=== PATIENT | female | born 1960 | race Caucasian/White ===

== ENCOUNTER 2016-08-23 06:14 | Emergency (ER) | payer OTHER ==
[~2016-08-23] VITALS: Ht 167.6 cm; Wt 89.7 kg
[~2016-08-23 06:14] MED LIST: INSDGI SC; LEVO150T PO; LISI-788 PO; METF500T PO; OMEP40CA PO; OXYC-57 PO
[2016-08-23 06:30] VITALS: TEMP 37.2; Ht 167.6 cm; Wt 89.7 kg
[2016-08-23 08:01] LABS: BASO % 0.2 %; BASO ABS # 0.03 K/uL (0-0.2); COMPLETE YES; EOS % 1.4 %; HEMATOCRIT 43.1 % (37-47); IG% 0.2 %; LYMPH % 33.6 %; LYMPH ABS # 4.19 K/uL (1.2-3.4); MEAN CELL VOLUME 94.3 fL (80-100); MEAN CORPUSCULAR HEMOGLOBIN 33.5 pg (25-34); MEAN CORPUSCULAR HGB CONC 35.5 g/dl (32-36); MEAN PLATELET VOLUME 11.7 fL (7.4-10.4); MONO % 5.5 %; NEUT % 59.1 %; PLATELET COUNT 208 K/uL (130-400); RED BLOOD COUNT 4.57 M/uL (4.2-5.4); WHITE BLOOD COUNT 12.47 K/uL (4.8-10.8)
[2016-08-23 08:18] LABS: BUN/CREATININE RATIO 16.8 (10-20); CALCIUM 9.1 mg/dl (8.5-10.1)
[2016-08-23] MEDS ORDERED: LEVO75TA PO (09:47)
[2016-08-23] MEDS ORDERED: LEVO150T PO (09:47)
[2016-08-23 10:12] VITALS: BP 122/70; PULSE 71; O2SAT 96
--- NOTE | 2016-08-24 16:41 | EMERGENCY ROOM VISIT NOTE ---
History First contact with patient: 07:19 Chief Complaint: OTHER COMPLAINT Stated Complaint: HEART PALP,HIGH HEART RATE History of Present Illness The patient is a 56 year old white female who presents to the Emergency Room with complaints of just not feeling right. She thinks she has had heart palpitations. Symptoms of been ongoing for a few days. She states she has been on Synthroid for 26 years. Recently her PCP changed her to generic levothyroxine. She also states her dose was increased from 175 g to 200 g. She believes her thyroid levels are off. She does not think the generic is as good as the name brand Synthroid. She states she is taking her medication daily. She was last seen at the [facility] approximately a month ago. She denies any fevers or chills. Occasional sweats. No nausea or vomiting. She denies any current dizziness. No chest pain or shortness of breath. No known ill contacts. She denies any upper respiratory symptoms. She is trying to quit smoking and has been started on Chantix. She is unsure if that medication is causing her symptoms. She does feel anxious. Review of Systems REVIEW OF SYSTEM: HEENT: No dizziness, visual problems, hearing loss, or tinnitus. There is no difficulty swallowing and no oral lesions are present. LYMPH: No adenopathy. PULMONARY: No cough, shortness of breath, sputum production or hemoptysis. CARDIOVASCULAR: No chest pain, palpitations, shortness of breath or peripheral edema. GASTROINTESTINAL: No diarrhea, constipation, nausea, vomiting, or abdominal pain. GENITOURINARY: No dysuria, frequency, urgency or nocturia. NEUROLOGIC: No weakness, muscle tenderness, epilepsy or history of neurological problems. Positive history of chronic headaches. MUSCULOSKELETAL: No history of joint tenderness/swelling. Positive history of arthritis and arthralgias. SKIN: No rashes or lesions. PSYCHIATRIC: Positive history of depression and anxiety. ENDOCRINE: No history of thyroid disorders, or abnormal hair growth. Past Medical/Surgical History Medical Problems: (1) Benign hypertension (2) Cervicalgia (3) Chronic low back pain (4) Diabetes (5) Diabetes (6) Diabetes mellitus, type II (7) History of - hypothyroidism (8) HTN (hypertension) (9) Lumbago (10) Lumbago (11) Lumbar degenerative disc disease (12) Migraines (13) Post-surgical hypothyroidism Surgical Problems: (1) H/O section (2) H/O inguinal hernia repair (3) H/O ovarian cystectomy (4) H/O partial thyroidectomy Left hip replacement Family History Significant for diabetes, heart disease, and hypertension. Father is . Social History Smoking Status: Current Every Day Smoker Smokeless Tobacco Use: No Alcohol Use: none Drug Use: none Marital Status: single Housing Status: lives with family Occupation Status: unemployed Current/Historical Medications Scheduled Cholecalciferol (Vitamin D), 1 TAB PO QPM Fenofibrate (Tricor), 145 MG PO QPM Insulin Glargine (Lantus), 30 UNITS SC QPM Levothyroxine Sodium (Synthroid), 175 MCG PO QAM Levothyroxine Sodium (Synthroid), 1 TAB PO DAILY Levothyroxine Sodium (Synthroid), 1 TAB PO DAILY Multivitamin (Multivitamin), 1 TAB PO DAILY Scheduled PRN Ibuprofen (Advil), 200-600 MG PO HS PRN for Pain Allergies Coded Allergies: Tramadol (Verified Allergy, Unknown, ITCHING/EAR RINGING, 08/23/16) Trazodone (Verified Allergy, Unknown, GI UPSET, RINGING OF THE EARS, FELT OVERDOSED, 08/23/16) Gabapentin (Verified Adverse Reaction, Unknown, GI upset, 08/23/16) Physical Exam Vital Signs Date Time Temp Pulse Resp B/P Pulse Ox O2 Delivery O2 Flow Rate FiO2 08/23/16 10:12 71 18 122/70 96 Room Air 08/23/16 09:00 78 18 137/86 98 Room Air 08/23/16 07:21 68 08/23/16 06:30 37.2 86 18 130/87 97 Room Air Pain Rating (0-10): 0 Physical Exam Gen.: Well-developed, well-nourished, middle-aged white female, in no acute distress. Laying on a bed. Alert and oriented. Skin:Warm and dry with good turgor. No rashes or lesions. No ecchymosis or erythema. The patient is not diaphoretic. No abrasions. Scar present on her left hip. HEENT: Normocephalic atraumatic. Eyes PERRLA, EOMI. No conjunctiva injection. Bilateral scleral injection. Ears TMs intact bilaterally with good light reflexes. No erythema or bulging. No hemotympanum. Canals are patent. Nares patent bilaterally without turbinate enlargement. No significant drainage. No epistaxis. Oropharynx without erythema or exudate. Uvula midline, oral mucosa moist. No lesions present. Heart: Heart RRR. No MGR. no palpitations. Peripheral pulses are 2+. Lungs: Lungs are clear to auscultation. No crackles rhonchi or wheezing. Good air movement. The patient is able to take a deep breath. Abdomen: Abdomen was inspected, auscultated, and palpated. Obese. Bowel sounds present x 4. Soft, nontender to palpation. No hepato-splenomegaly. No masses noted. No rebound. No CVA tenderness. Musculoskeletal: Gross motor function of the upper and lower extremities is intact and unremarkable. Neurologic: Gross sensation is intact across the upper and lower extremities by soft touch. Medical Decision & Procedures ER Provider Diagnostic Interpretation: EKG obtained today was reviewed with Dr. Solares. She has a normal sinus rhythm with a rate of 72. No significant change from May 2015. No acute ST or T- wave changes. Laboratory Results 08/23/16 07:20 Red Blood Count 4.57, Mean Corpuscular Volume 94.3, Mean Corpuscular Hemoglobin 33.5, Mean Corpuscular Hemoglobin Concent 35.5, Mean Platelet Volume 11.7, Neutrophils (%) (Auto) 59.1, Lymphocytes (%) (Auto) 33.6, Monocytes (%) (Auto) 5.5, Eosinophils (%) (Auto) 1.4, Basophils (%) (Auto) 0.2, Neutrophils # (Auto) 7.36, Lymphocytes # (Auto) 4.19, Monocytes # (Auto) 0.69, Eosinophils # (Auto) 0.18, Basophils # (Auto) 0.03 08/23/16 07:20 Test 08/23/16 07:20 White Blood Count 12.47 K/uL (4.8-10.8) Red Blood Count 4.57 M/uL (4.2-5.4) Hemoglobin 15.3 g/dL (12.0-16.0) Hematocrit 43.1 % (37-47) Mean Corpuscular Volume 94.3 fL (80-100) Mean Corpuscular Hemoglobin 33.5 pg (25-34) Mean Corpuscular Hemoglobin Concent 35.5 g/dl (32-36) Platelet Count 208 K/uL (130-400) Mean Platelet Volume 11.7 fL (7.4-10.4) Neutrophils (%) (Auto) 59.1 % Lymphocytes (%) (Auto) 33.6 % Monocytes (%) (Auto) 5.5 % Eosinophils (%) (Auto) 1.4 % Basophils (%) (Auto) 0.2 % Neutrophils # (Auto) 7.36 K/uL (1.4-6.5) Lymphocytes # (Auto) 4.19 K/uL (1.2-3.4) Monocytes # (Auto) 0.69 K/uL (0.11-0.59) Eosinophils # (Auto) 0.18 K/uL (0-0.5) Basophils # (Auto) 0.03 K/uL (0-0.2) RDW Standard Deviation 49.6 fL (36.4-46.3) RDW Coefficient of Variation 14.6 % (11.5-14.5) Immature Granulocyte % (Auto) 0.2 % Immature Granulocyte # (Auto) 0.02 K/uL (0.00-0.02) Anion Gap 9.0 mmol/L (3-11) Est Creatinine Clear Calc Drug Dose 72.5 ml/min Estimated GFR () 74.0 Estimated GFR (Non- 63.8 BUN/Creatinine Ratio 16.8 (10-20) Calcium Level 9.1 mg/dl (8.5-10.1) Thyroid Stimulating Hormone (TSH) 133.000 uIu/ml (0.300-4.500) Free Thyroxine 0.52 ng/dl (0.80-1.60) Free Triiodothyronine 1.58 pg/ml (2.30-4.20) CBC, PRP, TSH, free T4, and free T3 were obtained. TSH is significantly elevated at 133. It was over 100 at her last office visit 1 month ago. T4 and T3 are also off. ED Course Patient was educated regarding today's findings. Conservative care measures were discussed. IV was established. Labs were obtained. She was placed on monitor. She remained stable while in the ED. Her TSH, free T3, and free T4 significantly off. I did speak with the [facility] hospitalist. She recommended switching the patient back to Synthroid 225 g daily. She will stop the generic levothyroxine. Patient will follow-up with her PCP on September 10. An appointment has been made. Return to the ED for any other concerns. Impression Primary Impression: Hypothyroidism Departure Information Dispostion Home / Self-Care Condition GOOD Prescriptions Levothyroxine Sodium (SYNTHROID) 150 Mcg Tab 1 TAB PO DAILY for 30 Days, #30 TAB 0 Refills Prov: Higinio Ott,P.A. 08/23/16 Levothyroxine Sodium (SYNTHROID) 75 Mcg Tab 1 TAB PO DAILY for 30 Days, #30 TAB 0 Refills Prov: Higinio Ott,P.A. 08/23/16 Referrals Saul Pina M.D. (PCP) Forms WORK / SCHOOL INSTRUCTIONS, HOME CARE DOCUMENTATION FORM, IMPORTANT VISIT INFORMATION Patient Instructions [facility] Additional Instructions take the new synthroid prescriptions as directed. Discard the old pills return to the ED as needed You have an appointment on September 10 at 12:[address] Pina Problem Qualifiers Primary Impression: Hypothyroidism Hypothyroidism type: acquired Qualified Codes: E03.9 - Hypothyroidism, unspecified
[2016-08-27] MEDS ORDERED: MULT-506 PO (08:03)
[2016-08-27] MEDS ORDERED: FENO145T26 PO (10:25)
[2016-08-27] MEDS ORDERED: CHOL1TAB42 PO (10:25)
[2016-08-27] MEDS ORDERED: IBUP-1050 PO (13:05)
== END 2016-08-23 10:14 | disposition home or self-care (01) ==
LOC: C.EDB 06:16
DX: E03.9 Hypothyroidism, unspecified (principal); I10 Essential (primary) hypertension; M54.2 Cervicalgia; M54.5 Low back pain; G89.29 Other chronic pain; E11.9 Type 2 diabetes mellitus without complications; G43.909 Migraine, unspecified, not intractable, without status migrainosus; M51.36 Other intervertebral disc degeneration, lumbar region; F17.210 Nicotine dependence, cigarettes, uncomplicated; Z79.4 Long term (current) use of insulin; Z79.899 Other long term (current) drug therapy; Z83.3 Family history of diabetes mellitus; Z82.49 Family history of ischemic heart disease and other diseases of the circulatory system

== ENCOUNTER 2016-08-27 20:19 | Emergency (ER) | payer OTHER ==
[~2016-08-27] VITALS: Ht 170.2 cm; Wt 90.9 kg
[~2016-08-27 20:19] MED LIST changes: +CHOL1TAB42 PO; +FENO145T26 PO; +IBUP-1050 PO; +LEVO75TA PO; -LISI-788 PO; -METF500T PO; +MULT-506 PO; -OMEP40CA PO; -OXYC-57 PO
[2016-08-27 20:22] VITALS: BP 155/94; PULSE 73; TEMP 36.5; O2SAT 97; Ht 170.2 cm; Wt 90.9 kg
[2016-08-27] MEDS ORDERED: AMOXICILLIN HOME PACK 250 MG/TAB PO ONE ×2 (20:36→20:45)
[2016-08-27] MEDS ORDERED: AMOXICILLIN 250 MG CAP PO ONE (20:42)
[2016-08-27] MEDS ORDERED: INSDGIPEN SC (21:00)
[2016-08-27] MEDS ORDERED: SYN150 PO (21:00)
[2016-08-27] MEDS ORDERED: SYN75 PO (21:00)
--- NOTE | 2016-08-29 19:07 | EMERGENCY ROOM VISIT NOTE ---
ED Visit Note First contact with patient: 20:28 Chief Complaint: Prescription medication refill request History of Present Illness: Ms. Machado is a 56-year-old white female who ambulates into the ED requesting prophylactic antibiotics for her dentist appointment tomorrow. Historically patient reports she has a left hip arthroplasty. She has a prescription for amoxicillin for antibiotic prophylaxis before she goes to the dentist but was not able to get the pharmacy tonight before it closed and she is requesting 2000 mg of amoxicillin. Currently she is not experiencing any symptoms or any pain. She denies previous infections with dental procedures. Past Medical History: As noted above and (1) Benign hypertension (2) Cervicalgia (3) Chronic low back pain (4) Diabetes (5) Diabetes (6) Diabetes mellitus, type II (7) History of - hypothyroidism (8) HTN (hypertension) (9) Lumbago (10) Lumbago (11) Lumbar degenerative disc disease (12) Migraines (13) Post-surgical hypothyroidism Surgical Problems: (1) H/O section (2) H/O inguinal hernia repair (3) H/O ovarian cystectomy (4) H/O partial thyroidectomy Current Medications: Medications Dose Route/Sig Max Daily Dose Days Date Category Dose Instructions Synthroid (Levothyroxine Sodium) 150 Mcg Tab 150 Mcg PO DAILY 08/27/16 Reported TAKE ONE 150 MCG TABLET ALONG WITH ONE 75 MCG TABLET TO EQUAL 225 MCG DOSE Synthroid (Levothyroxine Sodium) 75 Mcg Tab 75 Mcg PO DAILY 08/27/16 Reported TAKE ONE 75 MCG TABLET ALONG WITH ONE 150 MCG TABLET TO EQUAL 225 MCG DOSE Lantus Solostar (Insulin Glargine) 100 Unit/Ml Inj 30 Units SC QPM 08/27/16 Reported Multivitamin (Multivitamins) Tab 1 Tab PO DAILY 08/23/16 Reported Advil (Ibuprofen) 200 Mg Tab 200-600 Mg PO UD PRN 10/02/15 Reported TAKE PER PACKAGE DIRECTIONS Vitamin D (Cholecalciferol) 5,000 Unit Tab 5,000 Inter.unit PO QPM 07/10/15 Reported Tricor (Fenofibrate) 145 Mg Tab 145 Mg PO QPM 07/10/15 Reported Allergies to Medications: Gabapentin, trazodone, tramadol, varenicline. Social History: Patient is currently employed; she feels safe in her home environment; she admits to tobacco and alcohol use. Physical Examination: Vital Signs: Date Time Temp Pulse Resp B/P Pulse Ox O2 Delivery O2 Flow Rate FiO2 08/27/16 20:22 36.5 73 18 155/94 97 Room Air GENERAL: 56-year-old female in no acute distress, nontoxic-appearing, afebrile and hemodynamically stable. NEUROLOGICAL: Awake, alert and oriented to person, place and time. Answering questions appropriately and following commands. ED Course: Patient is assessed as noted above. Patient was educated about tonight's findings and instructed on her treatment plan; she verbalizes understanding and agreement with this plan. Clinical Impression: Medication prescription medication request. Disposition: Patient discharged home in stable condition; prior to departure she was reassessed and subjectively reported she continued to have no pain or symptoms. Plan: Patient was given a home pack of amoxicillin equaling 2000 mg tablets. Patient was encouraged to use the antibiotics approximately one hour before her dental procedure. Patient was encouraged to follow-up as needed.
== END 2016-08-27 20:53 | disposition home or self-care (01) ==
LOC: C.EDB 20:21 → C.EDD 20:53
DX: Z76.0 Encounter for issue of repeat prescription (principal); I10 Essential (primary) hypertension; E11.9 Type 2 diabetes mellitus without complications; E03.9 Hypothyroidism, unspecified; G89.29 Other chronic pain; M51.36 Other intervertebral disc degeneration, lumbar region; F17.200 Nicotine dependence, unspecified, uncomplicated; Z98.890 Other specified postprocedural states; Z79.899 Other long term (current) drug therapy; Z88.8 Allergy status to other drugs, medicaments and biological substances

== ENCOUNTER → 2016-09-03 | Outpatient (CLI) | payer OTHER ==
[~2016-09-03] MED LIST changes: -INSDGI SC; +INSDGIPEN SC; -LEVO150T PO; -LEVO75TA PO; +SYN150 PO; +SYN75 PO
== END | disposition home or self-care (01) ==
LOC: C.LABPVFM 13:23
PROVIDERS: ATTEND Family Medicine
DX: E03.8 Other specified hypothyroidism (principal)

== ENCOUNTER → 2016-10-13 | Outpatient (CLI) | payer OTHER | END | disposition home or self-care (01) | LOC: C.LABPVFM 15:22 | PROVIDERS: ATTEND Family Medicine | DX: E03.8 Other specified hypothyroidism (principal) ==

== ENCOUNTER → 2016-11-26 | Outpatient (CLI) | payer OTHER ==
[2016-11-26 13:02] LABS: ESTIMATED AVERAGE GLUCOSE 137 mg/dl; HA1C FLAG Normal (Normal)
[2016-11-26 13:11] LABS: CHOLESTEROL/HDL RATIO 5.4; THYROID STIMULATING HORMONE 0.58 uIu/ml (0.300-4.500)
== END | disposition home or self-care (01) ==
LOC: C.LABPVFM 08:35
PROVIDERS: ATTEND Internal Medicine
DX: Z00.00 Encounter for general adult medical examination without abnormal findings (principal); E03.9 Hypothyroidism, unspecified

== ENCOUNTER → 2016-12-09 | Outpatient (CLI) | payer OTHER ==
--- NOTE | 2016-12-10 08:21 | MAMMOGRAPHY REPORT ---
BILATERAL DIGITAL SCREENING MAMMOGRAM TOMOSYNTHESIS WITH CAD: 12/09/2016 CLINICAL HISTORY: Routine screening. Patient has no complaints. TECHNIQUE: Breast tomosynthesis in addition to standard 2D mammography was performed. Current study was also evaluated with a Computer Aided Detection (CAD) system. COMPARISON: Comparison is made to exams dated: 02/01/2015 mammogram, 10/29/2012 mammogram, 10/31/2011 mamm ogram, 11/06/2010 mammogram - [facility], 09/20/2009 mammogram, and 03/02/2008 mammogra m. BREAST COMPOSITION: The tissue of both breasts is heterogeneously dense, which may obscure small mas ses. FINDINGS: There is a stable metallic biopsy marker within the left breast. Scattered and grouped pu nctate microcalcifications are stable compared to prior exams. No suspicious mass, architectural dis tortion or cluster of new microcalcifications is seen. IMPRESSION: ACR BI-RADS CATEGORY 1: NEGATIVE There is no mammographic evidence of malignancy. A 1 year screening mammogram is recommended. The pa tient will receive written notification of the results. Approximately 10% of breast cancers are not detected with mammography. A negative mammographic report should not delay biopsy if a clinically suggestive mass is present. Maria De Jesus Olivier M.D. ay/:12/09/2016 17:37:48 Security Coordinator: Kirsty ROMAN(Philip)(M), [facility] letter sent: Normal 1/2 BI-RADS Code: ACR BI-RADS Category 1: Negative
== END | disposition home or self-care (01) ==
LOC: C.MAMM 10:25
PROVIDERS: ATTEND Family Medicine
DX: Z12.31 Encounter for screening mammogram for malignant neoplasm of breast (principal)

== ENCOUNTER → 2016-12-09 | Outpatient (CLI) | payer OTHER | END | disposition home or self-care (01) | LOC: C.PAPS 15:26 | PROVIDERS: ATTEND Obstetrics & Gynecology | DX: Z12.4 Encounter for screening for malignant neoplasm of cervix (principal) ==